=== PATIENT | female | born 1985 | race Caucasian/White ===

== ENCOUNTER 2017-01-18 12:53 | Emergency (ER) | payer BC ==
[~2017-01-18] VITALS: Ht 165.1 cm; Wt 72.6 kg
[2017-01-18 13:19] VITALS: BP 126/85
[2017-01-18] MEDS ORDERED: Norco 7.5mg/325mg tab ORAL ONE (13:30)
[2017-01-18] MEDS ORDERED: Morphine Sulfate 4mg/ml Inj IM ONE (14:45)
[2017-01-18] MEDS ORDERED: TRAMADOL HCL50 MG ORAL (14:56)
[2017-01-18] MEDS ORDERED: IBUPROFEN600 MG ORAL (14:56)
[2017-01-18 15:04] VITALS: BP_SYST 126; BP_SYST 129; BP_DIAS 83; BP_DIAS 85
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
== END 2017-01-18 15:06 | disposition home or self-care (01) ==
LOC: EMR 13:55
DX: M54.5 Low back pain (principal); Z88.8 Allergy status to other drugs, medicaments and biological substances
CPT/HCPCS: 96372; 99284; J2270

== ENCOUNTER 2017-02-10 10:09 | Emergency (ER) | payer BC ==
[~2017-02-10] VITALS: Ht 165.1 cm; Wt 72.6 kg
[~2017-02-10 10:09] MED LIST: IBUPROFEN600 MG ORAL; TRAMADOL HCL50 MG ORAL
[2017-02-10 10:21] VITALS: BP 119/83
[2017-02-10] MEDS ORDERED: Ketorolac 60mg Inj IM ONE (10:30)
[2017-02-10] MEDS ORDERED: IBUPROFEN600 MG ORAL (12:39)
[2017-02-10 12:48] VITALS: BP 122/85
[2017-02-10 12:49] VITALS: BP 122/85
--- NOTE | 2017-02-10 12:52 | Emergency Room Report ---
History of Present Illness General Chief Complaint: Back Pain-No Injury Source: Patient Present Illness HPI The patient is a 31-year-old female with a history of chronic lower back pain presenting for back pain. She states that she was lifting heavy objects 3 days prior which made the pain worse. It is now an 8/10 dull ache and does not radiate. Worse with movement. She states that she used to have tramadol but has run out. She was seen in this ED 3 weeks prior for lower back pain as well. She denies any other symptoms including N, V, F, chills, abd pain, dysuria Allergies: Coded Allergies: CARBAMAZEPINE (Verified Allergy, Unknown, 01/18/17) OXCARBAZEPINE (Verified Allergy, Unknown, 01/18/17) Patient History Past Medical History: see triage record Pertinent Family History: none Last Menstrual Period: 02/05/17 Now: No Reviewed Nursing Documentation: PMH: Agreed, PSxH: Agreed Review of Systems All Other Systems: negative except mentioned in HPI Physical Exam Vital Signs Date Time Temp Pulse Resp B/P Pulse Ox O2 Delivery O2 Flow Rate FiO2 02/10/17 10:15 98.1 70 15 122/81 99 Room Air Sp02 EP Interpretation: reviewed, normal General Appearance: no apparent distress, alert, GCS 15, non-toxic Head: normocephalic, atraumatic Eyes: bilateral eye PERRL, bilateral eye normal inspection ENT: hearing grossly normal, normal pharynx, no angioedema, normal voice Neck: full range of motion, supple/symm/no masses Gastrointestinal: normal bowel sounds, non tender, soft, non-distended, no guarding, no rebound Musculoskeletal: back normal, gait/station normal, normal range of motion, tender - TTP diffusely over the lumbar region. Neurologic: alert, oriented x3, responsive, motor strength/tone normal, sensory intact, speech normal Psychiatric: judgement/insight normal, memory normal, mood/affect normal, no suicidal/homicidal ideation Skin: normal color, no rash, warm/dry, well hydrated Lymphatic: no adenopathy Medical Decision Making PA Attestation Dr. Whiteside is my supervising physician. Patient management was discussed with my supervising physician Diagnostic Impression: Primary Impression: Chronic pain ER Course The patient is a 31-year-old female with a history of chronic lower back pain presenting for back pain Ddx considered include but not limited to lumbar strain, degenerative disease, epidural abscess, disc herniation, cauda equina, chronic pain, narcotic dependency PE: resting on gurney. NAD TTP diffusely to lumbar region. No step-offs. SILT. Normal gait CURES report the patient received more than 200 opioid medications within the past month. She will need to seek care at pain management for further care. ER precautions given Last Vital Signs Date Time Temp Pulse Resp B/P Pulse Ox O2 Delivery O2 Flow Rate FiO2 02/10/17 11:00 98.2 02/10/17 10:21 67 15 119/83 99 Room Air Status: improved Disposition: HOME, SELF-CARE Condition: Improved Scripts Ibuprofen* (MOTRIN*) 600 Mg Tablet 600 MG ORAL Q8H Y for For Pain, #30 TAB 0 Refills Prov: RADHA DE LA ROSA 02/10/17 Patient Instructions: Back Pain, Adult, Chronic Pain Additional Instructions: I discussed my findings with the patient. All questions and concerns have been answered. Treatment and medication compliance have been addressed. I advised the patient that they need to follow up with PMD in 3-5 days. Return to ED if symptoms worsen, new symptoms arise, or if needed for any reason. Patient verbalized understanding of discharge instructions. The patient was informed that due to recent narcotic prescriptions, we are unable to provide any opioid medications RADHA DE LA ROSA Feb 10, 2017 12:52
== END 2017-02-10 12:51 | disposition home or self-care (01) ==
LOC: EMR 10:34
DX: G89.29 Other chronic pain (principal); M54.5 Low back pain
CPT/HCPCS: 96372; 99283